=== PATIENT | male | born 1960 | race Caucasian/White ===

== ENCOUNTER 2023-06-16 08:00 | Observation (INO) ==
[~2023-06-16 08:00] MED LIST: Buffered Lidocaine 1% SYRIN 1 ml INTRADERM ONE; HYDROmorphone 1 MG/1 ML SYRINGE IV PRN; Lactated Ringers 1000 ml BAG 1,000 ML IV SCH; Naloxone 0.4 mg VIAL 0.4 mg/ml 1 ml VIAL IV PRN; Ondansetron 4 mg VIAL 2 MG/ML 2 ml VIAL IV PRN; Prochlorperazine 5 mg/ml 2 ml VIAL (10 mg) IV PRN; fentaNYL 100 mcg/2 ml 50 MCG/ML VIAL IV PRN
[2023-06-16] MEDS ORDERED: ceFAZolin 2 GM PREMIX 2 GM/50 ML BAG ONE (08:12)
[2023-06-16 08:32] LABS: Rapid COVID-19 Molecular Undetected (Undetected)
[2023-06-16] MEDS ORDERED: Bupivacaine 0.5% PF 10 ML SDV VIAL INJ ONE (08:35)
[2023-06-16] MEDS ORDERED: Midazolam 2 mg/2 ml VIAL 1 mg/ml 2 ml VIAL (2 mg) ONE (08:35)
[2023-06-16] MEDS ORDERED: Propofol 10 MG/ML 20 ML BTL ONE ×2 (08:35→12:28)
[2023-06-16] MEDS ORDERED: Ondansetron 4 mg VIAL 2 MG/ML 2 ml VIAL ONE (08:35)
[2023-06-16] MEDS ORDERED: Dexamethasone IV 4 MG/ML VIAL 1 ml VIAL ONE (08:35)
[2023-06-16] MEDS ORDERED: Lidocaine 2% PF 5 ML VIAL ONE (08:35)
[2023-06-16] MEDS ORDERED: fentaNYL 100 mcg/2 ml 50 MCG/ML VIAL ONE (08:35)
[2023-06-16] MEDS ORDERED: Phenylephrine IV 10 MG/ML 1 ml VIAL ONE (08:35)
[2023-06-16] MEDS ORDERED: Lidocaine 1% MPF 5 ML VIAL ONE (10:24)
[2023-06-16] MEDS ORDERED: Ropivacaine 5 MG/ML 20 ML VIAL 0.5% (100 MG) ONE (10:24)
[2023-06-16] MEDS ORDERED: ROPIVACAINE 5 MG/ML 30 ML BTL (0.5%) ONE (10:48)
[2023-06-16] MEDS ORDERED: Acetaminophen IV 1 GM/100ML 1,000 MG/100 ML BAG IV ONE (12:17)
[2023-06-16] MEDS ORDERED: Tranexamic Acid 1,000 MG/10 ML SDV ONE (12:41)
[2023-06-16] MEDS ORDERED: Sterile Water for Inj 10 ML ONE (13:13)
[2023-06-16] MEDS ORDERED: methylPREDNISolone SOD SUCC 125 mg 2 ML VIAL ONE (13:19)
[2023-06-16] MEDS ORDERED: Morphine 2 MG/ML SYRINGE IV PRN (13:46)
[2023-06-16] MEDS ORDERED: Lactulose 30 ml UDC PO PRN (13:46)
[2023-06-16] MEDS ORDERED: Ondansetron 4 mg VIAL 2 MG/ML 2 ml VIAL IV PRN (13:46)
[2023-06-16] MEDS ORDERED: Magnesium Hydroxide LIQ 30 ML UDC PO PRN (13:46)
[2023-06-16] MEDS ORDERED: Ondansetron ODT 4 mg TAB 4 MG TAB PO PRN (13:46)
[2023-06-16] MEDS: Lactated Ringers 1000 ml BAG 1,000 ML IV SCH (16:27)
[2023-06-16] MEDS: ceFAZolin 1 GM ADVAN 1 GM in NS 0.9% 50 ML 50 ML IVPB SCH (19:33)
[2023-06-16] MEDS ORDERED: Dextrose 50% Syringe 50 ml 25 GM/50 ML SYRINGE IV PUSH PRN (19:48)
[2023-06-16] MEDS: Magnesium Hydroxide LIQ 30 ML UDC PO SCH (20:57)
[2023-06-17] MEDS: Lactated Ringers 1000 ml BAG 1,000 ML IV SCH (02:29)
[2023-06-17] MEDS: ceFAZolin 1 GM ADVAN 1 GM in NS 0.9% 50 ML 50 ML IVPB SCH ×2 (03:45→11:40)
[2023-06-17 06:37] LABS: Hematocrit 37.4 % (38-53); Hemoglobin 12.7 g/dL (13.2-16.3); Mean Platelet Volume 9.1 fL (7.5-11.2); Platelet Count 225 10^3/uL (150-450)
[2023-06-17 06:55] LABS: Calcium 9.1 mg/dL (8.6-10.3); Creatinine, Serum 0.78 mg/dL (0.67-1.17); Potassium 4.1 mmol/L (3.5-5.0); eGFR CKD-EPI 99.6 (>60)
[2023-06-17] MEDS: Magnesium Hydroxide LIQ 30 ML UDC PO SCH (08:07)
[2023-06-17] MEDS ORDERED: Empagliflozin 25 MG TAB PO SCH (09:00)
[2023-06-17] MEDS ORDERED: COENZYME Q10 PO SCH (09:00)
[2023-06-17] MEDS ORDERED: Insulin GLARGINE 100 un/ml 10 ml VIAL SUBCUT SCH (09:00)
[2023-06-17] MEDS ORDERED: Vitamin THERAPEUTIC TAB PO SCH (09:00)
[2023-06-17 10:29] VITALS: BP 119/65
== END 2023-06-17 13:00 | disposition home or self-care (01) ==
LOC: AA 08:00 → INTOOBSV 08:00 → SSU 13:46
PROVIDERS: ADMIT Orthopaedic Surgery Adult Reconstructive Orthopaedic Surgery; ATTEND Orthopaedic Surgery Adult Reconstructive Orthopaedic Surgery

== ENCOUNTER 2023-10-20 05:41 | Observation (INO) ==
[2023-10-20] MEDS ORDERED: Buffered Lidocaine 1% SYRIN 1 ml INTRADERM ONE (06:00)
[2023-10-20] MEDS ORDERED: Lactated Ringers 1000 ml BAG 1,000 ML IV SCH ×2 (06:00→11:00)
[2023-10-20] MEDS ORDERED: Famotidine IV 10 MG/ML 2 ml VIAL (20 mg) IV ONE (06:00)
[2023-10-20] MEDS ORDERED: Tranexamic Acid 1 GM/100ML BAG 2,000 MG/200 ML BAG IV ONE (06:14)
[2023-10-20] MEDS ORDERED: ceFAZolin 2 GM in NS PREMIX 2 GM/100 ML BAG IVPB ONE (06:14)
[2023-10-20] MEDS ORDERED: Famotidine IV 10 MG/ML 2 ml VIAL (20 mg) ONE (06:14)
[2023-10-20] MEDS ORDERED: Buffered Lidocaine 1% SYRIN 1 ml ONE (06:14)
[2023-10-20 06:25] LABS: Rapid COVID-19 Molecular Undetected (Undetected)
[2023-10-20] MEDS ORDERED: Midazolam 2 mg/2 ml VIAL 1 mg/ml 2 ml VIAL (2 mg) ONE ×2 (06:48→06:56)
[2023-10-20] MEDS ORDERED: fentaNYL 100 mcg/2 ml 50 MCG/ML VIAL ONE ×2 (06:48→06:56)
[2023-10-20] MEDS ORDERED: ROPIVACAINE 5 MG/ML 30 ML BTL (0.5%) ONE ×2 (06:48→07:19)
[2023-10-20] MEDS ORDERED: Phenylephrine IV 10 MG/ML 1 ml VIAL ONE (06:56)
[2023-10-20] MEDS ORDERED: Bupivacaine-MPF SPINAL 7.5 MG/ML - 2ML AMP ONE (07:41)
[2023-10-20] MEDS ORDERED: Naloxone 0.4 mg VIAL 0.4 mg/ml 1 ml VIAL IV PRN (08:15)
[2023-10-20] MEDS ORDERED: HYDROmorphone 1 MG/1 ML SYRINGE IV PRN (08:15)
[2023-10-20] MEDS ORDERED: fentaNYL 100 mcg/2 ml 50 MCG/ML VIAL IV PRN (08:15)
[2023-10-20] MEDS ORDERED: Ondansetron 4 mg VIAL 2 MG/ML 2 ml VIAL ONE (08:19)
[2023-10-20] MEDS ORDERED: Propofol 10 MG/ML 20 ML BTL ONE ×2 (09:09→09:44)
[2023-10-20] MEDS ORDERED: Ondansetron 4 mg VIAL 2 MG/ML 2 ml VIAL IV PRN (10:31)
[2023-10-20] MEDS ORDERED: Lactulose 30 ml UDC PO PRN (10:31)
[2023-10-20] MEDS ORDERED: Morphine 2 MG/ML SYRINGE IV PRN (10:31)
[2023-10-20] MEDS ORDERED: Ondansetron ODT 4 mg TAB 4 MG TAB PO PRN (10:31)
[2023-10-20] MEDS ORDERED: Magnesium Hydroxide LIQ 30 ML UDC PO PRN (10:31)
[2023-10-20 14:50] VITALS: BP 105/65
[2023-10-20] MEDS ORDERED: ceFAZolin 1 GM ADVAN 1 GM in NS 0.9% 50 ML 50 ML IVPB SCH (16:00)
[2023-10-20] MEDS ORDERED: Magnesium Hydroxide LIQ 30 ML UDC PO SCH (21:00)
[2023-10-21] MEDS ORDERED: Coenzyme Q10 CAP (NF) ** ENTER STREGNTH IN LABEL DIRECTIONS PO SCH (09:00)
[2023-10-21] MEDS ORDERED: Vitamin THERAPEUTIC TAB PO SCH (09:00)
[2023-10-21] MEDS ORDERED: Empagliflozin 25 MG TAB PO SCH (09:00)
[2023-10-21] MEDS ORDERED: Insulin GLARGINE 100 un/ml 10 ml VIAL SUBCUT SCH (09:00)
== END 2023-10-20 16:30 | disposition home or self-care (01) ==
LOC: AA 05:41 → INTOOBSV 05:41 → SSU 10:31
PROVIDERS: ADMIT Orthopaedic Surgery Adult Reconstructive Orthopaedic Surgery; ATTEND Orthopaedic Surgery Adult Reconstructive Orthopaedic Surgery